=== PATIENT | male | born 1950 | race Caucasian/White ===

== ENCOUNTER 2019-10-28 09:53 | Day surgery (SDC) | payer MEDICARE, BC ==
[~2019-10-28 09:53] MED LIST: CHONDR SU A NA/HYALUR INTRAOC KIT (SURGICARE) ONE; EPINEPHRINE INJ/PF 1 MG/1 ML AMPULE ONE; KETOROLAC TROMETHAMINE 0.45% 4 DROP/0.4 ML DROPERETTE OD PRN; LIDOCAINE 1%/PHENYLEPHRINE 1.5% 1 ML VIAL ONE
[2019-10-28] MEDS: TETRACAINE HCL 0.5% OPH SOLN 4 ML OD PRN ×3 (10:08→10:33)
[2019-10-28] MEDS: TROPICAMIDE 1% OPH SOLN 15 ML OD PRN ×3 (10:09→10:28)
[2019-10-28] MEDS: CYCLOPENTOLATE 0.2%/PHENYLEPHRINE 1% OPH SOLN 2 ML OD PRN ×3 (10:09→10:29)
[2019-10-28] MEDS: BESIFLOXACIN HCL 0.6% OPH SUSP 5 ML BOTTLE OD PRN ×4 (10:09→10:57)
[2019-10-28] MEDS ORDERED: MIDAZOLAM 2 MG/2 ML INJ ONE (10:16)
[2019-10-28] MEDS ORDERED: FENTANYL CITRATE INJ/PF 100 MCG/2 ML AMPUL ONE (10:45)
[2019-10-28] MEDS: DORZOLAMIDE HCL 2%/TIMOLOL MALEAT 0.5% OPH SOLN 10 ML OD PRN ×2 (10:57)
== END 2019-10-28 11:55 | disposition home or self-care (01) ==
LOC: SC 09:53
PROVIDERS: ATTEND Ophthalmology
DX: H25.11 Age-related nuclear cataract, right eye (principal); I25.10 Atherosclerotic heart disease of native coronary artery without angina pectoris; E11.9 Type 2 diabetes mellitus without complications; I10 Essential (primary) hypertension; E78.00 Pure hypercholesterolemia, unspecified; Z86.73 Personal history of transient ischemic attack (TIA), and cerebral infarction without residual deficits; K21.9 Gastro-esophageal reflux disease without esophagitis; Z79.82 Long term (current) use of aspirin; Z79.4 Long term (current) use of insulin; Z79.84 Long term (current) use of oral hypoglycemic drugs; F17.210 Nicotine dependence, cigarettes, uncomplicated
CPT/HCPCS: 82962; 66984; V2632; J2250; J3490 ×2; A9270; J0171; J3010; J2370; 142

== ENCOUNTER 2019-11-11 12:28 | Day surgery (SDC) | payer MEDICARE, BC ==
[~2019-11-11 12:28] MED LIST changes: -CHONDR SU A NA/HYALUR INTRAOC KIT (SURGICARE) ONE; -EPINEPHRINE INJ/PF 1 MG/1 ML AMPULE ONE; -KETOROLAC TROMETHAMINE 0.45% 4 DROP/0.4 ML DROPERETTE OD PRN; +KETOROLAC TROMETHAMINE 0.45% 4 DROP/0.4 ML DROPERETTE OS PRN; -LIDOCAINE 1%/PHENYLEPHRINE 1.5% 1 ML VIAL ONE
[2019-11-11] MEDS: TETRACAINE HCL 0.5% OPH SOLN 4 ML OS PRN ×3 (12:47→13:14)
[2019-11-11] MEDS: CYCLOPENTOLATE 0.2%/PHENYLEPHRINE 1% OPH SOLN 2 ML OS PRN ×3 (12:48→13:09)
[2019-11-11] MEDS: TROPICAMIDE 1% OPH SOLN 15 ML OS PRN ×3 (12:48→13:08)
[2019-11-11] MEDS: BESIFLOXACIN HCL 0.6% OPH SUSP 5 ML BOTTLE OS PRN ×4 (12:48→13:45)
[2019-11-11] MEDS ORDERED: MIDAZOLAM 2 MG/2 ML INJ ONE (12:55)
[2019-11-11] MEDS ORDERED: FENTANYL CITRATE INJ/PF 100 MCG/2 ML AMPUL ONE (12:55)
[2019-11-11] MEDS: CHONDR SU A NA/HYALUR INTRAOC KIT (SURGICARE) ONE ×2 (13:31)
[2019-11-11] MEDS: LIDOCAINE 1%/PHENYLEPHRINE 1.5% 1 ML VIAL ONE ×2 (13:31)
[2019-11-11] MEDS: EPINEPHRINE INJ/PF 1 MG/1 ML AMPULE ONE ×2 (13:31)
[2019-11-11] MEDS: DORZOLAMIDE HCL 2%/TIMOLOL MALEAT 0.5% OPH SOLN 10 ML OS PRN ×2 (13:45)
--- NOTE | 2019-11-11 15:17 | Operative Report ---
Operative Report-[facility] Operative Report: DATE OF SURGERY: November 11, 2019 PREOPERATIVE DIAGNOSIS: NUCLEAR CATARACT, LEFT EYE. POSTOPERATIVE DIAGNOSIS: NUCLEAR CATARACT, LEFT EYE. PROCEDURE PERFORMED: PHACOEMULSIFICATION WITH POSTERIOR CHAMBER INTRAOCULAR LENS IMPLANT, LEFT EYE. SURGEON: Junior Murray DO MEDICATIONS AND ANESTHESIA: Versed: IV Versed Tetracaine drops: 1 to 2 drops given as needed COMPLICATION: [None] INDICATIONS FOR SURGERY: Medical necessity: Best corrected visual acuity worse than 20/40 secondary to cataracts with impairment of ability to carry out needs or desired activities, blurred vision, visual distortion, reduced contrast sensitivity and/or glare with association functional impairment and supporting documentation/testing, and cataracts causing symptomatic impairment of visual functions not corrected with tolerable changes in glasses or contact lenses interfering with activities of daily life. PROCEDURE: Consent: The risks, benefits and alternatives of this procedures was discussed with the patient. The patient read and signed the consent forms, was identified and was seated in the exam chair. IOL: MX 60 e IOL Diopters: 18.5 Phacoemulsification with posterior chamber intraocular lens implant: The face was prepped with 5% povidone iodine solution, and a few drops of 5% povidone iodine solution was instilled into the inferior fornix. A non-fenestrated drape was placed over the eye and the lids were parted with the speculum. A paracentesis was made with a 15 degree blade, and 1% lidocaine MPF followed by viscoelastic was injected into the anterior chamber. A 2.4 mm metal micro- keratome was used to create a temporal clear corneal incision. A circular anterior capsulorrhexis was created, followed by hydro-dissection and hydro- delineation. The phacoemulsification hand piece was inserted and the nucleus was removed with the Phaco chop technique. The irrigation-aspiration hand piece was used to remove the residual cortex, and vacuum the posterior capsule. The capsular bag was inflated and viscoelastic and the above-mentioned IOL was injected into the eye with care to insert both leaning and trailing haptics in the capsular bag. The irrigation/aspiration hand piece was reinserted to remove residual viscoelastic from the capsular bag and anterior chamber. The corneal incision was hydrated, and anterior chamber was inflated with sterile BSS via the paracentesis site, and found to be watertight. Postop medication:1 drop of prednisolone into operative by followed by 1 drop of Cosopt into operative eye followed by 1 drop of Besivance intraoperative by Other: []
== END 2019-11-11 14:33 | disposition home or self-care (01) ==
LOC: SC 12:28
PROVIDERS: ATTEND Ophthalmology
DX: H25.12 Age-related nuclear cataract, left eye (principal); Z98.41 Cataract extraction status, right eye; F17.210 Nicotine dependence, cigarettes, uncomplicated; I25.10 Atherosclerotic heart disease of native coronary artery without angina pectoris; E11.9 Type 2 diabetes mellitus without complications; I10 Essential (primary) hypertension; Z86.73 Personal history of transient ischemic attack (TIA), and cerebral infarction without residual deficits; K21.9 Gastro-esophageal reflux disease without esophagitis; Z95.1 Presence of aortocoronary bypass graft; Z79.899 Other long term (current) drug therapy; Z79.82 Long term (current) use of aspirin; Z79.84 Long term (current) use of oral hypoglycemic drugs; Z79.4 Long term (current) use of insulin
CPT/HCPCS: 82962; 66984; V2632; J2250; J3490 ×2; A9270; J0171; J3010; J2370; 142

== ENCOUNTER → 2020-01-21 | Outpatient (CLI) | payer MEDICARE, BC ==
--- NOTE | 2020-01-21 12:20 | RADIOLOGY REPORT (SQ) ---
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 TECHNIQUE: Axial images acquired through the brain without intravenous contrast. Images reviewed wi th bone, brain and subdural windows. Additional sagittal and coronal reconstructions were generated. Images stored on PACS. All CT scanners at this facility use dose modulation, iterative reconstruction, and/or weight based d osing when appropriate to reduce radiation dose to as low as reasonably achievable (ALARA). [facility]: Dose Right [facility]: CareDose [facility]: Dose Right [facility]: Teradose 4D [facility]: Smart Technologies RADIATION DOSE: CT Rad equipment meets quality standard of care and radiation dose reduction techniq ues were employed. CTDIvol: 48.7 mGy. DLP: 955 mGy-cm. mGy. LIMITATIONS: None. FINDINGS: VENTRICLES: Normal size and contour. CEREBRUM: No CT evidence of acute ischemic change, acute intracranial hemorrhage, mass effect, or mid line shift. There are multiple infarcts in the bilateral basal ganglia and bifrontal deep periventric ular white matter, right and left thalamus. These are chronic in appearance. CEREBELLUM: No masses. No hemorrhage. No alteration of density. No evidence for acute infarction. EXTRAAXIAL SPACES: No fluid collections. No masses. ORBITS AND GLOBE: No intra- or extraconal masses. Normal contour of globe without masses. Post charly ract surgery CALVARIUM: No fracture. PARANASAL SINUSES: No fluid or mucosal thickening. SOFT TISSUES: No mass or hematoma. OTHER: No other significant finding. IMPRESSION: No acute findings. Multiple old lacunar infarcts in the basal ganglia, left thalamus, bifrontal deep periventricular whi te matter EVIDENCE OF ACUTE STROKE: NO. COMMENT: Quality ID # [id number]: Final reports with documentation of one or more dose reduction techniques (e.g., Automated exposure control, adjustment of the mA and/or kV according to patient size, use of iterative reconstruction technique) TECHNICAL DOCUMENTATION: JOB ID: [id number] 2010 [employer]- All Rights Reserved Reading location - IP/workstation name: [id number]
== END ==
LOC: RAD 10:30
PROVIDERS: ATTEND Internal Medicine
DX: I63.30 Cerebral infarction due to thrombosis of unspecified cerebral artery (principal)
CPT/HCPCS: 70450

== ENCOUNTER 2020-04-03 14:51 | Emergency (ER) | payer MEDICARE, BC ==
--- NOTE | 2020-04-03 15:14 | ER Document Report ---
ED Medical Screen (RME) - General Chief Complaint: High Blood Pressure Stated Complaint: ELEVATED BLOOD SUGAR Time Seen by Provider: 04/03/20 15:08 Primary Care Provider: FABIANA MONTANO MD [Primary Care Provider] - Follow up as needed Mode of Arrival: Wheelchair Information source: Relative Notes: 70-year-old male presented to ED for increasing confusion. He states he was diagnosed with new onset dementia in December but he has been much more confused in the last 48 hours. He did go to see his doctor on Saturday. He is daughter is with him she states he has not taken his medications today. She states he was incontinent of urine and stool yesterday and again this morning. She is concerned because his confusion is gotten much worse over the last couple days. He is alert answer some questions but not all questions appropriately. I have greeted and performed a rapid initial assessment of this patient. A comprehensive ED assessment and evaluation of the patient, analysis of test results and completion of medical decision making process will be conducted by an additional ED providers. TRAVEL OUTSIDE OF THE [place] IN LAST 30 DAYS: No - Related Data Allergies/Adverse Reactions: No Known Allergies Allergy (Verified 11/05/19 14:43) Past Medical History - Past Medical History Cardiac Medical History: Reports: Hx Hypertension Denies: Hx Heart Attack Pulmonary Medical History: Denies: Hx Asthma Neurological Medical History: Denies: Hx Cerebrovascular Accident, Hx Seizures GI Medical History: Denies: Hx Hepatitis, Hx Hiatal Hernia, Hx Ulcer Infectious Medical History: Denies: Hx Hepatitis Past Surgical History: Reports: Hx Open Heart Surgery - 1998. Denies: Hx Pacemaker Physical Exam - Vital signs Vitals: Temp Pulse Resp BP Pulse Ox 98.4 F 91 20 146/67 H 97 04/03/20 14:58 04/03/20 14:58 04/03/20 14:58 04/03/20 14:58 04/03/20 14:58 Course - Vital Signs Vital signs: Temp Pulse Resp BP Pulse Ox 98.4 F 91 20 146/67 H 97 04/03/20 14:58 04/03/20 14:58 04/03/20 14:58 04/03/20 14:58 04/03/20 14:58 Doctor's Discharge - Discharge Referrals: FABIANA MONTANO MD [Primary Care Provider] - Follow up as needed
--- NOTE | 2020-04-03 15:56 | RADIOLOGY REPORT (SQ) ---
EXAM DESCRIPTION: CHEST 2 VIEWS IMAGES COMPLETED DATE/TIME: 04/03/2020 2:34 pm REASON FOR STUDY: Altered mental status COMPARISON: None. EXAM PARAMETERS: NUMBER OF VIEWS: two views TECHNIQUE: Digital Frontal and Lateral radiographic views of the chest acquired. RADIATION DOSE: NA LIMITATIONS: none FINDINGS: LUNGS AND PLEURA: No opacities, masses or pneumothorax. No pleural effusion. MEDIASTINUM AND HILAR STRUCTURES: No masses or contour abnormalities. HEART AND VASCULAR STRUCTURES: Postoperative changes of prior CABG. Heart has normal size. No pulmo nary vascular congestion. BONES: No acute findings. HARDWARE: None in the chest. OTHER: No other significant finding. IMPRESSION: NO ACUTE RADIOGRAPHIC FINDING IN THE CHEST. TECHNICAL DOCUMENTATION: JOB ID: [id number] 2010 [employer]- All Rights Reserved Reading location - IP/workstation name: [id number]
--- NOTE | 2020-04-03 16:04 | RADIOLOGY REPORT (SQ) ---
EXAM DESCRIPTION: CT HEAD WITHOUT IMAGES COMPLETED DATE/TIME: 04/03/2020 2:42 pm REASON FOR STUDY: Altered mental status COMPARISON: None. TECHNIQUE: Axial images acquired through the brain without intravenous contrast. Images reviewed wi th bone, brain and subdural windows. CT head, 01/21/2020. Images stored on PACS. All CT scanners at this facility use dose modulation, iterative reconstruction, and/or weight based d osing when appropriate to reduce radiation dose to as low as reasonably achievable (ALARA). [facility]: Dose Right [facility]: CareDose [facility]: Dose Right [facility]: Teradose 4D [facility]: [employer] RADIATION DOSE: CT Rad equipment meets quality standard of care and radiation dose reduction techniq ues were employed. CTDIvol: 53.2 mGy. DLP: 1177 mGy-cm. mGy. LIMITATIONS: None. FINDINGS: VENTRICLES: Normal size and contour. CEREBRUM: No masses. No hemorrhage. No midline shift. No evidence for acute infarction. Normal gra y-white matter differentiation. Moderate patchy periventricular, deep, and subcortical white matter hypodense attenuation consistent with moderate chronic small vessel ischemic change. Patchy areas of encephalomalacia in the basal ganglia bilaterally, stable. Focal lacunar infarct left thalamus also stable. There is intracranial atherosclerosis. CEREBELLUM: No masses. No hemorrhage. No alteration of density. No evidence for acute infarction. EXTRAAXIAL SPACES: No fluid collections. No masses. ORBITS AND GLOBE: No intra- or extraconal masses. Normal contour of globe without masses. CALVARIUM: No fracture. PARANASAL SINUSES: No fluid or mucosal thickening. SOFT TISSUES: No mass or hematoma. OTHER: No other significant finding. IMPRESSION: 1. No acute intracranial hemorrhage, mass, or evidence of acute territorial infarct. 2. Moderate chronic small vessel ischemic change and focal lacunar infarcts bilateral basal ganglia a nd left thalamus, stable from prior. 3. Intracranial atherosclerosis. EVIDENCE OF ACUTE STROKE: NO. COMMENT: Quality ID # [id number]: Final reports with documentation of one or more dose reduction techniques (e.g., Automated exposure control, adjustment of the mA and/or kV according to patient size, use of iterative reconstruction technique) TECHNICAL DOCUMENTATION: JOB ID: [id number] 2010 [email or web address]- All Rights Reserved Reading location - IP/workstation name: [email or web address]
[2020-04-03 16:23] LABS: ABSOLUTE BASOPHILS # (AUTO) 0.1 10^3/uL (0.0-0.2); ABSOLUTE EOSINOPHILS # (AUTO) 0.4 10^3/uL (0.0-0.6); ABSOLUTE LYMPHOCYTES (AUTO) 2.4 10^3/uL (0.5-4.7); ABSOLUTE MONOCYTES (AUTO) 0.8 10^3/uL (0.1-1.4); ABSOLUTE NEUT (AUTO) 6.5 10^3/uL (1.7-8.2); BASOPHILS % (AUTO) 0.7 % (0-2); EOSINOPHILS % (AUTO) 3.5 % (0-6); HEMATOCRIT 36.5 % (37.9-51.0); HEMOGLOBIN 13.3 g/dL (13.5-17.0); MEAN CORPUSCULAR HGB CONC 36.5 g/dL (32.0-36.0); MEAN CORPUSCULAR VOLUME 85 fl (80-97); MONOCYTES % (AUTO) 7.7 % (3-13); PLATELET COUNT 335 10^3/uL (150-450); RED CELL DISTRIBUTION WIDTH 13.2 % (11.5-14.0); SEGMENTED NEUTROPHILS % (AUTO) 64.1 % (42-78); TOTAL CELLS COUNTED % (AUTO) 100 %; WHITE BLOOD COUNT 10.1 10^3/uL (4.0-10.5)
[2020-04-03 16:24] LABS: INTERNATIONAL RATION (INR) 1.08
[2020-04-03 16:25] LABS: PARTIAL THROMBOPLASTIN TIME 32.1 SEC (23.5-35.8)
[2020-04-03 16:41] LABS: ALBUMIN 4.2 g/dL (3.5-5.0); ALKALINE PHOSPHATASE 83 U/L (38-126); ANION GAP 10 (5-19); ASPARTATE AMINO TRANSFERASE 35 U/L (17-59); BILIRUBIN,TOTAL 0.6 mg/dL (0.2-1.3); BLOOD UREA NITROGEN 15 mg/dL (7-20); CALCIUM 9.9 mg/dL (8.4-10.2); CARBON DIOXIDE 29 mmol/L (22-30); CHLORIDE 99 mmol/L (98-107); GLUCOSE 150 mg/dL (75-110); POTASSIUM 3.6 mmol/L (3.6-5.0); TOTAL PROTEIN 7.1 g/dL (6.3-8.2)
[2020-04-03 16:43] LABS: ALCOHOL < 10 mg/dL (NONE DETECTED)
--- NOTE | 2020-04-03 17:21 | ER Document Report ---
ED General - General Chief Complaint: High Blood Pressure Stated Complaint: ELEVATED BLOOD SUGAR Time Seen by Provider: 04/03/20 15:08 Primary Care Provider: FABIANA MONTANO MD [Primary Care Provider] - Follow up as needed Mode of Arrival: Wheelchair TRAVEL OUTSIDE OF THE [place] IN LAST 30 DAYS: No - HPI Notes: Patient is a 70-year-old male brought to the emergency department for evaluation by daughter. The daughter is a primary historian. Evidently the patient was diagnosed with dementia in December. It has progressed rapidly. She states that over the last several days, however, there is been a significant decompensation in his functional capacity. She states that he was able to walk around, had some home health assistance, but was doing well. She states that over the last several days he is been sitting in his own stool and feces, having difficulty walking, and seemed more acutely confused over this period of time. Patient's daughter also admits there has been a history of heavy alcohol use. - Related Data Allergies/Adverse Reactions: No Known Allergies Allergy (Verified 11/05/19 14:43) Past Medical History - General Information source: Relative - Social History Smoking Status: Current Every Day Smoker Frequency of alcohol use: Heavy Family History: Reviewed & Not Pertinent - Past Medical History Cardiac Medical History: Reports: Hx Coronary Artery Disease - Four-vessel CABG, Hx Hypertension Denies: Hx Heart Attack Pulmonary Medical History: Denies: Hx Asthma Neurological Medical History: Reports: Hx Cerebrovascular Accident. Denies: Hx Seizures Endocrine Medical History: Reports: Hx Diabetes Mellitus Type 2 GI Medical History: Reports: Hx Gastroesophageal Reflux Disease. Denies: Hx Hepatitis, Hx Hiatal Hernia, Hx Ulcer Skin Medical History: Reports Hx Eczema Psychiatric Medical History: Reports: Hx Dementia - Likely vascular per daughter Infectious Medical History: Denies: Hx Hepatitis Past Surgical History: Reports: Hx Coronary Artery Bypass Graft - 1998, four- vessel. Denies: Hx Pacemaker Review of Systems - Review of Systems Constitutional: See HPI Gastrointestinal: See HPI Neurological/Psychological: See HPI -: Yes All other systems reviewed and negative Physical Exam - Vital signs Vitals: Temp Pulse Resp BP Pulse Ox 98.4 F 91 20 146/67 H 97 04/03/20 14:58 04/03/20 14:58 04/03/20 14:58 04/03/20 14:58 04/03/20 14:58 - Notes Notes: This is a 70-year-old male, disheveled in appearance, who appears his stated age. He intermittently smiles and laughs at what seem like inappropriate times. He is cooperative with examiner, pleasant, interactive. Vital signs reviewed, please refer to chart. Head is normocephalic, atraumatic. Pupils equal round, reactive to light. Neck is supple without meningismus. Heart is regular rate and rhythm. Lungs are clear to auscultation bilaterally. Abdomen is soft, nontender, normoactive bowel sounds throughout. Extremities without cyanosis, clubbing. Posterior calves are nontender. Peripheral pulses are equal. Skin is warm and dry. Patient is awake, alert, oriented to person and place, but believes is 2009. He can identify the president. Cranial nerves II - XII are grossly intact without focal neurological deficits. Strength is plus 5 out of 5 bilateral upper and plus 4 out of 5 bilateral lower extremities. Sensation is intact. Reflexes mildly hyperactive on the right. Intact [id number], rapid alternating movements, [id number]. Course - Re-evaluation Re-evalutation: 04/03/20 17:20 Patient presents to the emergency department for evaluation. Laboratory vasculature initially ordered through triage. Patient is currently stable, his vital signs are unremarkable. Awaiting further testing, including urinalysis. He has evidence of old CVA on CT scan, and per family has had a recent MRI. He does not seem to have any clear focal deficits. It seems that his strength is variable. He was able to transfer to the bed earlier, but then was unable to do so. On strength testing here in the ER he had 4+ out of 5 strength bilateral lower extremities. He had mild hyperreflexia on the right, but does have CVA history. Will defer further imaging until urinalysis results. We will continue to monitor. 04/03/20 22:15 His work-up here is entirely unremarkable. At 2200 I spoke to his primary care physician, Dr. Montano. We talked at length about the patient's recent history, and he absolutely believes that all of this is progression of his dementia. We discussed findings, and both agree that he does not have any criteria for admission at this time. I discussed options with the daughter, which included keeping the patient here as a social hold, which may take some time to obtain placement, or sending him home. Dr. Montano will reach out to the daughter to work on placement. I discussed this with the daughter. She states that between her and other family members they should be able to stay with him, keep him from being alone, until something can be figured out in regards to more permanent placement. Patient will be discharged. 04/03/20 22:59 Initially daughter had agreed that home disposition was possible, that she believed with assistance something can be done until further placement plans were made. Patient's daughters mother was very upset at the idea of him being discharged. They did have a long conversation, I shared with them again that the patient could be held here in the emergency department pending placement. Decision was made for the patient to stay here as a social hold. - Vital Signs Vital signs: Temp Pulse Resp BP Pulse Ox 98.3 F 91 15 153/73 H 99 04/03/20 17:23 04/03/20 14:58 04/03/20 21:02 04/03/20 21:02 04/03/20 21:02 - Laboratory Result Diagrams: 04/03/20 16:00 04/03/20 16:00 Laboratory results interpreted by me: 04/03/20 04/03/20 04/03/20 15:51 16:00 16:00 RBC 4.30 L Hgb 13.3 L Hct 36.5 L MCHC 36.5 H Glucose 150 H POC Glucose 175 H ALT 66 H Urine Ketones 04/03/20 20:29 RBC Hgb Hct MCHC Glucose POC Glucose ALT Urine Ketones 20 H - Diagnostic Test Radiology reviewed: Reports reviewed Radiology results interpreted by me: 04/03/20 17:22 Chest X-Ray 04/03/20 15:08 IMPRESSION: NO ACUTE RADIOGRAPHIC FINDING IN THE CHEST. Head CT 04/03/20 15:08 IMPRESSION: 1. No acute intracranial hemorrhage, mass, or evidence of acute territorial infarct. 2. Moderate chronic small vessel ischemic change and focal lacunar infarcts bilateral basal ganglia and left thalamus, stable from prior. 3. Intracranial atherosclerosis. EVIDENCE OF ACUTE STROKE: NO. - EKG Interpretation by Me Additional EKG results interpreted by me: 04/03/20 22:18 Sinus mechanism with a rate of 95 bpm. Left axis deviation. Incomplete right bundle branch block. Nonspecific ST changes, nonspecific T wave changes, but no elevations concerning for infarction. No old studies immediately available for comparison. Discharge - Discharge Clinical Impression: Weakness Dementia Qualifiers: Dementia type: vascular dementia Condition: Stable Disposition: OTHER Instructions: Dementia ([facility]) Additional Instructions: You will be contacted by Dr. Montano for further evaluation and possible placement. Return to the emergency department with worsening or new concerning symptoms of any sort. Referrals: FABIANA MONTANO MD [Primary Care Provider] - Follow up as needed
[2020-04-03 21:49] LABS: APPEARANCE,URINE CLEAR; BILIRUBIN,URINE NEGATIVE (NEGATIVE); COLOR,URINE YELLOW; GLUCOSE, URINE NEGATIVE (NEGATIVE); KETONES,URINE 20 mg/dL (NEGATIVE); LEUKOCYTE ESTERASE,URINE NEGATIVE (NEGATIVE); NITRITE,URINE NEGATIVE (NEGATIVE); PROTEIN,URINE NEGATIVE (NEGATIVE); URINE SPECIFIC GRAVITY 1.023; UROBILINOGEN,URINE NEGATIVE mg/dL (<2.0)
--- NOTE | 2020-04-03 22:42 | EKG REPORT ---
SEVERITY:- ABNORMAL ECG - SINUS RHYTHM FIRST DEGREE AV BLOCK NONSPECIFIC T ABNORMALITIES, LATERAL LEADS : Confirmed by: Belle Myers MD 03-Apr-2020 22:41:45
--- NOTE | 2020-04-04 19:36 | ER Document Report ---
Doctor's Note Notes: 04/04/20 19:35 Patient's chart has been reviewed. He has had no problems today according to the nurses. It does not appear that his medications were ordered when he came into the hospital, so I asked the nurse to print out the medication reconciliation sheet so I could check off the medications that he needs to take. At this time the transition social worker is trying to find the patient placement. 04/05/20 18:40 No problems today. Blood sugars are controlled. Arrangements made been made for in-home theater expert services. A request was sent for having a hospital bed delivered prior to the patient being discharged home.
--- NOTE | 2020-04-06 13:21 | ER Document Report ---
Doctor's Note Notes: 04/06/20 13:19 Social hold note No new problems noted at this time. Durable medical equipment requested for the patient is being delivered this afternoon. Family is to pick this man up today at 5 PM.
[2020-04-06 15:36] VITALS: BP 134/72
== END 2020-04-06 17:09 | disposition other institution (70) ==
LOC: ER 14:51
DX: F01.50 Vascular dementia, unspecified severity, without behavioral disturbance, psychotic disturbance, mood disturbance, and anxiety (principal); R53.1 Weakness; E11.65 Type 2 diabetes mellitus with hyperglycemia; R41.0 Disorientation, unspecified; F17.200 Nicotine dependence, unspecified, uncomplicated; I25.10 Atherosclerotic heart disease of native coronary artery without angina pectoris; I10 Essential (primary) hypertension
CPT/HCPCS: 36415; 70450; 71046; 80053; 80307; 81001; 82962; 84484; 85025; 85610; 85730; 93005; 93010; 99285